=== PATIENT | female | born 2000 | race Two or more races ===

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

== ENCOUNTER 2020-01-23 19:21 | Emergency (ER) | payer OTHER, MEDICAID ==
[2020-01-23] MEDS ORDERED: Ibuprofen 800 MG Tab PO ONE (19:45)
[2020-01-23] MEDS ORDERED: Acetaminophen 500 MG Tab PO ONE (19:45)
--- NOTE | 2020-01-23 20:13 | EDM.PDOC ---
ED HPI GENERAL MEDICAL PROBLEM - General Chief Complaint: Lower Extremity Injury/Pain Stated Complaint: HURT ANKLE Time Seen by Provider: 01/23/20 19:30 Source of Information: Reports: Patient History Limitations: Reports: No Limitations - History of Present Illness INITIAL COMMENTS - FREE TEXT/NARRATIVE: Patient presented to the ED because of left ankle pain. She twsted her left ankle while at work. She rate her pain 9/10 and worse with ambulation. Left ankle Pain Score (Numeric/FACES): 6 - Related Data Allergies Allergy/AdvReac Type Severity Reaction Status Date / Time No Known Allergies Allergy Verified 01/23/20 19:42 Home Meds: Home Meds NK [No Known Home Meds] 06/04/19 [History] Past Medical History - Past Health History Medical/Surgical History: Denies Medical/Surgical History Gastrointestinal History: Reports: GERD Other Gastrointestinal History: Elevated bilirubin at . Neurological History: Reports: Concussion, Migraines - Past Surgical History GI Surgical History: Reports: None Social & Family History - Family History Family Medical History: Noncontributory - Tobacco Use Smoking Status *Q: Current Every Day Smoker Years of Tobacco use: 1 Packs/Tins Daily: 0.3 - Caffeine Use Caffeine Use: Reports: Coffee - Recreational Drug Use Recreational Drug Use: No - Living Situation & Occupation Occupation: Unemployed Review of Systems - Review of Systems Review Of Systems: See Below Constitutional: Reports: No Symptoms Ears: Reports: No Symptoms Nose: Reports: No Symptoms Mouth/Throat: Reports: No Symptoms Respiratory: Reports: No Symptoms Cardiovascular: Reports: No Symptoms Genitourinary: Reports: No Symptoms Musculoskeletal: Reports: Foot Pain, Joint Pain, Joint Swelling Skin: Reports: No Symptoms Neurological: Reports: No Symptoms ED EXAM, GENERAL - Physical Exam Exam: See Below Exam Limited By: No Limitations General Appearance: Alert, No Apparent Distress Eye Exam: Bilateral Eye: PERRL Ears: Normal External Exam, Normal Canal, Hearing Grossly Normal Nose: Normal Inspection, Normal Mucosa, No Blood Throat/Mouth: Normal Inspection, Normal Lips, Normal Teeth, Normal Gums, Normal Oropharynx, Normal Voice Head: Atraumatic, Normocephalic Neck: Normal Inspection, Supple, Non-Tender, Full Range of Motion Respiratory/Chest: No Respiratory Distress, Lungs Clear, Normal Breath Sounds, No Accessory Muscle Use, Chest Non-Tender Cardiovascular: Normal Peripheral Pulses, Regular Rate, Rhythm, No Edema, No Gallop, No JVD, No Murmur, No Rub GI/Abdominal: Normal Bowel Sounds, Soft, Non-Tender, No Organomegaly Extremities: Joint Swelling, Other (tenderness left ankle) Psychiatric: Normal Affect Skin Exam: Warm Course - Vital Signs Text/Narrative:: xray left ankle-neg ibuprofen 800 mg with tylenol 1000 mg po x1 air cast applied by ED RN Refused crutches Last Recorded V/S: Last Vital Signs Temp 36.4 C 01/23/20 20:52 Pulse 86 01/23/20 20:52 Resp 18 01/23/20 20:52 BP 135/67 01/23/20 20:52 Pulse Ox 99 01/23/20 20:52 - Orders/Labs/Meds Orders: Active Orders 24 hr Category Date Time Status Ankle Min 3V Lt [CR] Stat Exams 01/23/20 19:44 Taken Meds: Medications Discontinued Medications Generic Name Dose Route Start Last Admin Trade Name Freq PRN Reason Stop Dose Admin Acetaminophen 1,000 mg 01/23/20 19:45 01/23/20 19:54 Tylenol Extra Strength PO 01/23/20 19:46 1,000 mg ONETIME ONE Administration Ibuprofen 800 mg 01/23/20 19:45 01/23/20 19:54 Motrin PO 01/23/20 19:46 800 mg ONETIME ONE Administration Departure - Departure Time of Disposition: 20:10 Disposition: Home, Self-Care 01 Condition: Good Clinical Impression: Ankle sprain - Discharge Information Instructions: Ankle Sprain, [id number] Referrals: PCP,None [Primary Care Provider] - Forms: ED Department Discharge Additional Instructions: please read discharge instructions on ankle sprain take ibuprofen 800 mg with tylenol 1000 mg 3 times daily as needed for pain follow up as needed Sepsis Event Note - Evaluation Sepsis Screening Result: No Definite Risk - Focused Exam Vital Signs: Vital Signs Temp Pulse Resp BP Pulse Ox 01/23/20 20:52 36.4 C 86 18 135/67 99 01/23/20 19:25 36.4 C 84 16 140/82 100 Date Exam was Performed: 01/24/20 Time Exam was Performed: 02:00 - My Orders Last 24 Hours: My Active Orders 01/23/20 19:44 Ankle Min 3V Lt [CR] Stat - Assessment/Plan Last 24 Hours: My Active Orders 01/23/20 19:44 Ankle Min 3V Lt [CR] Stat
--- NOTE | 2020-01-24 11:00 | CR ---
INDICATION: Left ankle injury after tripping. Pain laterally. LEFT ANKLE: Three views of the left ankle revealed minimal soft tissue swelling laterally. The ankle mortise appears to be intact without a definite fracture or dislocation, or other definite bone or joint abnormality. If symptoms persist - if occult fracture site is suspected clinically, reexamination 10 to 14 days may be helpful. MTDD
== END 2020-01-23 21:00 | disposition home or self-care (01) ==
LOC: FB.ED 19:21
DX: S93.402A Sprain of unspecified ligament of left ankle, initial encounter (principal); F17.210 Nicotine dependence, cigarettes, uncomplicated; X50.1XXA Overexertion from prolonged static or awkward postures, initial encounter; Y99.0 Civilian activity done for income or pay
CPT/HCPCS: 73610-LT; 99000; 99283-25; A9270-GY

== ENCOUNTER 2020-08-22 01:55 | Emergency (ER) | payer SELFPAY ==
[2020-08-22] MEDS ORDERED: Lidocaine 2% Viscous Solution 15 ML Cup PO ONE (02:15)
[2020-08-22] MEDS ORDERED: Amoxicillin 500 MG Cap PO STA (02:33)
--- NOTE | 2020-08-22 02:38 | EDM.PDOC ---
ED HPI GENERAL MEDICAL PROBLEM - General Chief Complaint: General Stated Complaint: TOOTH INFECTION Time Seen by Provider: 08/22/20 02:10 Source of Information: Reports: Patient History Limitations: Reports: No Limitations - History of Present Illness INITIAL COMMENTS - FREE TEXT/NARRATIVE: Patient presented to the ED because of dental pain for the past 6 months which is getting worse. There was a chipped tooth next to the wisdom tooth at the right lower area. She is taking ibuprofen 400 mg without significant relief. 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 Neurological History: Reports: Concussion, Migraines - Past Surgical History GI Surgical History: Reports: None Social & Family History - Family History Family Medical History: Noncontributory - Caffeine Use Caffeine Use: Reports: Coffee - Living Situation & Occupation Occupation: Unemployed ED ROS GENERAL - Review of Systems Review Of Systems: See Below Constitutional: Reports: No Symptoms HEENT: Reports: Dental Pain Respiratory: Reports: No Symptoms Cardiovascular: Reports: No Symptoms Endocrine: Reports: No Symptoms GI/Abdominal: Reports: No Symptoms : Reports: No Symptoms Musculoskeletal: Reports: No Symptoms Skin: Reports: No Symptoms Neurological: Reports: No Symptoms Psychiatric: Reports: No Symptoms Hematologic/Lymphatic: Reports: No Symptoms Immunologic: Reports: No Symptoms ED EXAM, GENERAL - Physical Exam Exam: See Below Exam Limited By: No Limitations General Appearance: Alert, No Apparent Distress Ears: Normal External Exam, Normal Canal, Hearing Grossly Normal Nose: Normal Inspection, Normal Mucosa, No Blood Throat/Mouth: Other (dental caries, gingival swelling) Neck: Normal Inspection Respiratory/Chest: No Respiratory Distress, Lungs Clear, Normal Breath Sounds Cardiovascular: Normal Peripheral Pulses, Regular Rate, Rhythm, No Edema GI/Abdominal: Normal Bowel Sounds, Soft, Non-Tender, No Organomegaly Back Exam: Normal Inspection, Full Range of Motion Extremities: Normal Inspection, Normal Range of Motion, Non-Tender Neurological: Alert, Oriented, CN II-XII Intact, Normal Cognition, Normal Gait Psychiatric: Normal Affect, Normal Mood Skin Exam: Warm, Dry, Intact, Normal Color, No Rash Course - Vital Signs Text/Narrative:: amoxicillin 500 mg po x1 viscous lidocaine applied to the right lower gum area Last Recorded V/S: Last Vital Signs Temp 36.9 C 08/22/20 02:08 Pulse 86 08/22/20 02:08 Resp 18 08/22/20 02:08 BP 153/69 H 08/22/20 02:08 Pulse Ox 100 08/22/20 02:08 - Orders/Labs/Meds Meds: Medications Discontinued Medications Generic Name Dose Route Start Last Admin Trade Name Freq PRN Reason Stop Dose Admin Amoxicillin 500 mg 08/22/20 02:33 Amoxil PO 08/22/20 02:34 NOW STA Lidocaine HCl 15 ml 08/22/20 02:15 Xylocaine 2% Viscous PO 08/22/20 02:16 ONETIME ONE Departure - Departure Time of Disposition: 02:35 Disposition: Home, Self-Care 01 Condition: Good Clinical Impression: Chronic dental pain, Dental infection - Discharge Information Prescriptions: Amoxicillin 875 mg PO BID #20 tablet Ibuprofen 800 mg PO Q8H PRN #30 tablet PRN Reason: Pain Instructions: Benzocaine mouth gel, ointment, solution, or dental paste Referrals: PCP,None [Primary Care Provider] - Forms: ED Department Discharge Additional Instructions: Please read discharge instructions on dental pain and dental infection Take amoxicillin 875 mg twice daily for 10 days Ibuprofen 800 mg with tylenol 1000 mg every 8 hours as needed for pain Apply the viscous lidocain for pain that you can't tolerate Follow up with your dentist as soon as possible Sepsis Event Note (ED) - Evaluation Sepsis Screening Result: No Definite Risk - Focused Exam Vital Signs: Vital Signs Temp Pulse Resp BP Pulse Ox 08/22/20 02:08 36.9 C 86 18 153/69 H 100
== END 2020-08-22 02:50 | disposition home or self-care (01) ==
LOC: FB.ED 01:55
DX: K04.7 Periapical abscess without sinus (principal); K02.9 Dental caries, unspecified
CPT/HCPCS: 99282; A9270; 99283

== ENCOUNTER 2020-09-02 18:45 | Emergency (ER) | payer SELFPAY | END 2020-09-02 19:20 | disposition left against medical advice (07) | LOC: FB.ED 18:45 | DX: Z53.21 Procedure and treatment not carried out due to patient leaving prior to being seen by health care provider (principal) ==

== ENCOUNTER 2020-09-12 21:58 | Emergency (ER) | payer SELFPAY ==
--- NOTE | 2020-09-13 00:28 | EDM.PDOC ---
ED HPI GENERAL MEDICAL PROBLEM - General Chief Complaint: ENT Problem Stated Complaint: COUGH; SORE THROAT Time Seen by Provider: 09/12/20 23:30 Source of Information: Reports: Patient History Limitations: Reports: No Limitations - History of Present Illness INITIAL COMMENTS - FREE TEXT/NARRATIVE: states she has has fever , cough , sore throat and body aches for 3-4 days Cough is minimally productive of clear phlegm has sore throat , low grade fever has been using OTC Afrin , others for treatment and it improved needs release for her work Onset: Today Onset Date: 09/10/20 Duration: Day(s): Location: Reports: Chest Quality: Reports: Ache, Burning Severity: Moderate Improves with: Reports: None Worsens with: Reports: None Associated Symptoms: Reports: No Other Symptoms, Cough, Headaches, Nausea/Vomiting. Denies: Fever/Chills, Shortness of Breath throat Pain Score (Numeric/FACES): 4 - Related Data Allergies Allergy/AdvReac Type Severity Reaction Status Date / Time No Known Allergies Allergy Verified 01/23/20 19:42 Home Meds: Home Meds NK [No Known Home Meds] 09/12/20 [History] Past Medical History - Past Health History Medical/Surgical History: Denies Medical/Surgical History Gastrointestinal History: Reports: GERD Other Gastrointestinal History: Elevated bilirubin at . Neurological History: Reports: Concussion, Migraines - Past Surgical History GI Surgical History: Reports: None Social & Family History - Family History Family Medical History: Noncontributory - Tobacco Use Tobacco Use Status *Q: Never Tobacco User - Caffeine Use Caffeine Use: Reports: Coffee - Recreational Drug Use Recreational Drug Use: No - Living Situation & Occupation Occupation: Unemployed ED ROS ENT - Review of Systems Review Of Systems: Comprehensive ROS is negative, except as noted in HPI. ED EXAM, ENT - Physical Exam Exam: See Below Exam Limited By: No Limitations General Appearance: Alert, WD/WN, No Apparent Distress Eye Exam: Bilateral Eye: EOMI Ears: Normal External Exam, Normal TMs Nose: Clear Rhinorrhea, Nasal Discharge Mouth/Throat: Normal Oropharynx Head: Atraumatic, Normocephalic Neck: Normal Inspection, Supple, Non-Tender Respiratory/Chest: Lungs Clear, Normal Breath Sounds, Chest Non-Tender Cardiovascular: Regular Rate, Rhythm GI/Abdominal: Soft, Non-Tender Back: Full Range of Motion Neurological: Alert, Oriented, CN II-XII Intact Psychiatric: Normal Affect Course - Vital Signs Last Recorded V/S: Last Vital Signs Temp 36.6 C 09/12/20 23:10 Pulse 100 09/12/20 23:10 Resp 18 09/12/20 23:10 BP 141/87 H 09/12/20 23:10 Pulse Ox 100 09/12/20 23:10 - Orders/Labs/Meds Orders: Active Orders 24 hr Category Date Time Status CORNONAVIRUS (COVID19) [facility] Stat Lab 09/12/20 23:18 Received Departure - Departure Time of Disposition: 12:30 Disposition: Home, Self-Care 01 Condition: Good Clinical Impression: Acute viral syndrome Pharyngitis Qualifiers: Pharyngitis/tonsillitis etiology: unspecified etiology Qualified Code(s): J02.9 - Acute pharyngitis, unspecified - Discharge Information *PRESCRIPTION DRUG MONITORING PROGRAM REVIEWED*: Not Applicable *COPY OF PRESCRIPTION DRUG MONITORING REPORT IN PATIENT CONCETTA: Not Applicable Instructions: COVID-19 Frequently Asked Questions, Coronavirus Information 02/06/20, Prevent the Spread of COVID-19 if You Are Sick - [facility] [place][NOTE 3] Referrals: PCP,None [Primary Care Provider] - Forms: ED Department Discharge, ED Return to Work/School Form Additional Instructions: OTC medications: mucinex, Exedrin Sepsis Event Note (ED) - Evaluation Sepsis Screening Result: No Definite Risk - Focused Exam Vital Signs: Vital Signs Temp Pulse Resp BP Pulse Ox 09/12/20 23:10 36.6 C 100 18 141/87 H 100 - My Orders Last 24 Hours: My Active Orders 09/12/20 23:18 CORNONAVIRUS (COVID19) [facility] Stat - Assessment/Plan Last 24 Hours: My Active Orders 09/12/20 23:18 CORNONAVIRUS (COVID19) [facility] Stat
[2020-09-14 18:10] LABS: CORNONAVIRUS (COVID19) CSH-NRL Negative (Negative)
== END 2020-09-13 00:37 | disposition home or self-care (01) ==
LOC: FB.ED 21:58
DX: J02.9 Acute pharyngitis, unspecified (principal); B34.9 Viral infection, unspecified; Z20.828 Contact with and (suspected) exposure to other viral communicable diseases
CPT/HCPCS: 99283; U0003

== ENCOUNTER 2020-09-15 03:54 | Emergency (ER) | payer SELFPAY ==
[2020-09-15] MEDS ORDERED: Ketorolac 60 MG/2 ML SDV IM ONE (04:18)
--- NOTE | 2020-09-15 04:18 | EDM.PDOC ---
ED HPI GENERAL MEDICAL PROBLEM - General Chief Complaint: ENT Problem Stated Complaint: TOOTH PAIN Time Seen by Provider: 09/15/20 03:55 Source of Information: Reports: Patient History Limitations: Reports: Intoxication - History of Present Illness INITIAL COMMENTS - FREE TEXT/NARRATIVE: States she woke suddenly from sleep withsevere l right lower jjaw pain States she ran out wihtout shoes. has pain in the right lower jaw states she has caviites and some they caused to have tooth infection denies any fever or chill currently Onset: Today Onset Date: 09/15/20 Duration: Hour(s): (2) Location: Reports: Face Quality: Reports: Ache, Dull Severity: Moderate Improves with: Reports: Heat Therapy Worsens with: Reports: Eating Associated Symptoms: Reports: No Other Symptoms - Related Data Allergies Allergy/AdvReac Type Severity Reaction Status Date / Time No Known Allergies Allergy Verified 01/23/20 19:42 Home Meds: Home Meds Amoxicillin/Potassium Clav [Augmentin 875-125 Tablet] 1 each PO BID #20 tablet 09/15/20 [Rx] Past Medical History - Past Health History Medical/Surgical History: Denies Medical/Surgical History Gastrointestinal History: Reports: GERD Other Gastrointestinal History: Elevated bilirubin at . Neurological History: Reports: Concussion, Migraines - Past Surgical History GI Surgical History: Reports: None Social & Family History - Family History Family Medical History: Noncontributory - Caffeine Use Caffeine Use: Reports: Coffee - Living Situation & Occupation Occupation: Unemployed ED ROS ENT - Review of Systems Review Of Systems: Comprehensive ROS is negative, except as noted in HPI. ED EXAM, ENT - Physical Exam Exam: See Below Exam Limited By: No Limitations General Appearance: Alert, WD/WN, No Apparent Distress Ears: Normal External Exam Nose: Normal Inspection Mouth/Throat: Normal Gums, Dental Pain, Dental Tenderness, Hoarse Voice. No: Bleeding Head: Normocephalic Neck: Supple, Non-Tender Respiratory/Chest: Lungs Clear, Normal Breath Sounds Cardiovascular: Regular Rate, Rhythm GI/Abdominal: Soft, Non-Tender Back: Normal Inspection, Full Range of Motion Extremities: Normal Inspection, Normal Capillary Refill Neurological: Alert, Oriented, CN II-XII Intact Psychiatric: Normal Mood Course - Orders/Labs/Meds Meds: Medications Discontinued Medications Generic Name Dose Route Start Last Admin Trade Name Freq PRN Reason Stop Dose Admin Ketorolac Tromethamine 60 mg 09/15/20 04:18 09/15/20 04:24 Toradol IM 09/15/20 04:19 60 mg ONETIME ONE Administration Departure - Departure Time of Disposition: 04:30 Disposition: Home, Self-Care 01 Clinical Impression: Pain due to dental caries, Gingivitis, Toothache - Discharge Information *PRESCRIPTION DRUG MONITORING PROGRAM REVIEWED*: Not Applicable *COPY OF PRESCRIPTION DRUG MONITORING REPORT IN PATIENT CONCETTA: Not Applicable Prescriptions: Amoxicillin/Potassium Clav [Augmentin 357-125 Tablet] 1 each PO BID #20 tablet Forms: ED Department Discharge Additional Instructions: 1) Warm salt water gurgles 2) Take ibuprofen as needed for pain 3) Make an appointment to see the dentist
== END 2020-09-15 04:35 | disposition home or self-care (01) ==
LOC: FB.ED 03:54
DX: K05.10 Chronic gingivitis, plaque induced (principal); K02.9 Dental caries, unspecified
CPT/HCPCS: 96372; 99282; J1885

== ENCOUNTER 2021-03-18 20:57 | Emergency (ER) | payer SELFPAY ==
--- NOTE | 2021-03-18 21:13 | EDM.PDOC ---
ED HPI GENERAL MEDICAL PROBLEM - General Stated Complaint: COVID POSITIVE, SORE TOE Time Seen by Provider: 03/18/21 21:00 Source of Information: Reports: Patient History Limitations: Reports: No Limitations - History of Present Illness INITIAL COMMENTS - FREE TEXT/NARRATIVE: Patient presented to the ED because of left 4th and 5 toe injury. He stabbed it against a rock and since then it was hurting, and swollen. - Related Data Allergies Allergy/AdvReac Type Severity Reaction Status Date / Time No Known Allergies Allergy Verified 09/17/20 06:49 Home Meds: Home Meds Amoxicillin/Potassium Clav [Augmentin 875-125 Tablet] 1 each PO BID #20 tablet 09/15/20 [Rx] Past Medical History - Past Health History Medical/Surgical History: Denies Medical/Surgical History HEENT History: Reports: Other (See Below) Other HEENT History: Dental problems. Gastrointestinal History: Reports: GERD Other Gastrointestinal History: Elevated bilirubin at . Neurological History: Reports: Concussion, Migraines - Past Surgical History GI Surgical History: Reports: None Social & Family History - Family History Family Medical History: No Pertinent Family History - Caffeine Use Caffeine Use: Reports: Coffee - Living Situation & Occupation Occupation: Unemployed Review of Systems - Review of Systems Review Of Systems: See Below Constitutional: Reports: No Symptoms Eyes: Reports: No Symptoms Ears: Reports: No Symptoms Nose: Reports: No Symptoms Mouth/Throat: Reports: No Symptoms Respiratory: Reports: No Symptoms Cardiovascular: Reports: No Symptoms GI/Abdominal: Reports: No Symptoms Genitourinary: Reports: No Symptoms Musculoskeletal: Reports: Other (left foot pain) Skin: Reports: No Symptoms ED EXAM, GENERAL - Physical Exam Exam: See Below Exam Limited By: No Limitations General Appearance: Alert, No Apparent Distress Eye Exam: Bilateral Eye: PERRL Ears: Normal External Exam, Normal Canal Nose: Normal Inspection, Normal Mucosa, No Blood Throat/Mouth: Normal Inspection, Normal Lips Head: Atraumatic, Normocephalic Neck: Normal Inspection, Supple, Non-Tender, Full Range of Motion Respiratory/Chest: No Respiratory Distress, Lungs Clear, Normal Breath Sounds, No Accessory Muscle Use, Chest Non-Tender Cardiovascular: Normal Peripheral Pulses, Regular Rate, Rhythm, No Edema, No Gallop, No JVD, No Murmur, No Rub GI/Abdominal: Normal Bowel Sounds, Soft, Non-Tender Back Exam: Normal Inspection, Full Range of Motion Extremities: Joint Swelling, Other (tenderness and swelling left 4th and 4th toe) Course - Vital Signs Text/Narrative:: Xray left foot-left 4th toe fracture The fractured toe was zhao taped She refuse to have crutches an ortho shoes - Orders/Labs/Meds Orders: Active Orders 24 hr Category Date Time Status Foot Comp Min 3V Lt [CR] Stat Exams 03/18/21 21:03 Ordered Departure - Departure Time of Disposition: 21:10 Disposition: Home, Self-Care 01 Condition: Good Clinical Impression: Foot injury, Contusion, Toe fracture, left - Discharge Information Instructions: Toe Fracture, [id number], Contusion, Foot Pain Referrals: PCP,None [Primary Care Provider] - Additional Instructions: please read discharge instructions on foot injury,contusion, toe fracture apply ice elevate take ibuprofen 800 mg with tylenol 1000 mg every 8 hours as needed for pain/swelling follow up in 7-10 days for a repeat xray just to be sure it's healing well - My Orders Last 24 Hours: My Active Orders 03/18/21 21:03 Foot Comp Min 3V Lt [CR] Stat - Assessment/Plan Last 24 Hours: My Active Orders 03/18/21 21:03 Foot Comp Min 3V Lt [CR] Stat
--- NOTE | 2021-03-19 11:32 | CR ---
INDICATION: Left 4th/5th toe injury, dropped a brick on her foot. LEFT FOOT: Three views of the left foot were obtained 03/18/21 - no comparisons. There is an oblique fracture which appears somewhat comminuted at the shaft extending into the distal metaphysis of the proximal phalanx of the 4th toe with fracture fragments in good position and alignment. No other bone or joint abnormality was identified. IMPRESSION: 4th toe fracture in good position and alignment. MTDD
== END 2021-03-18 21:50 | disposition home or self-care (01) ==
LOC: FB.ED 20:57
DX: S92.512A Displaced fracture of proximal phalanx of left lesser toe(s), initial encounter for closed fracture (principal); W20.8XXA Other cause of strike by thrown, projected or falling object, initial encounter
CPT/HCPCS: 73630-LT; 99283

== ENCOUNTER 2021-04-11 09:51 | Emergency (ER) | payer SELFPAY ==
--- NOTE | 2021-04-11 10:40 | EDM.PDOC ---
ED HPI GENERAL MEDICAL PROBLEM - General Chief Complaint: ENT Problem Stated Complaint: sore throat Time Seen by Provider: 04/11/21 10:22 Source of Information: Reports: Patient History Limitations: Reports: No Limitations - History of Present Illness INITIAL COMMENTS - FREE TEXT/NARRATIVE: 20-year-old female who reports onset of sore throat last night. He reports it is a sore pain that is sharp and shooting when she swallows. She also has a mild cough. There is no nasal congestion. She finds it difficult to swallow and she has had no appetite and has not been eating. She rates the pain as a 7/10 at present. It is worse with swallowing. She feels that it is very swollen back there. She does have some body aches. No nausea or vomiting. No dysuria. No abdominal pain. There are no other associated signs or symptoms. There are no other modifying factors. 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 Neurological History: Reports: Concussion, Migraines - Past Surgical History Other Surgical History Comment: No previous surgeries. Social & Family History - Tobacco Use Tobacco Use Status *Q: Never Tobacco User - Caffeine Use Caffeine Use: Reports: Coffee - Alcohol Use Alcohol Use History: No - Recreational Drug Use Recreational Drug Use: No - Living Situation & Occupation Living situation: Reports: with Significant Other Occupation: Unemployed ED ROS ENT - Review of Systems Review Of Systems: See Below Constitutional: Reports: Malaise HEENT: Reports: Throat Pain Respiratory: Reports: Cough Cardiovascular: Reports: No Symptoms Endocrine: Reports: No Symptoms GI/Abdominal: Reports: No Symptoms : Reports: No Symptoms Musculoskeletal: Reports: Other (Body aches) Skin: Reports: No Symptoms Neurological: Reports: No Symptoms Psychiatric: Reports: No Symptoms Hematologic/Lymphatic: Reports: No Symptoms Immunologic: Reports: No Symptoms ED EXAM, ENT - Physical Exam Exam: See Below Exam Limited By: No Limitations General Appearance: Alert, Moderate Distress, Obese Eye Exam: Bilateral Eye: EOMI, Normal Inspection, PERRL Ears: Normal External Exam, Hearing Grossly Normal Nose: Normal Inspection, Normal Mucousa, No Blood Mouth/Throat: Normal Lips, Normal Teeth, Pharyngeal Erythema, Throat Swelling, Tonsillar Erythema, Tonsillar Exudates, Tonsillar Swelling, Other (No uvula deviation or edema.) Neck: Supple, Full Range of Motion, Lymphadenopathy (R), Lymphadenopathy (L) Respiratory/Chest: No Respiratory Distress, Lungs Clear, Normal Breath Sounds, No Accessory Muscle Use, Chest Non-Tender Cardiovascular: Normal Peripheral Pulses, Regular Rate, Rhythm, No Murmur GI/Abdominal: Normal Bowel Sounds, Soft, Non-Tender Back: Normal Inspection, Full Range of Motion Extremities: Normal Inspection, Normal Range of Motion, Non-Tender, No Pedal Edema, Normal Capillary Refill Neurological: Alert, Oriented, CN II-XII Intact, No Motor/Sensory Deficits Psychiatric: Normal Affect Skin: Warm, Dry, Intact, Normal Color, No Rash Lymphatic: Adenopathy (As above.) Course - Vital Signs Last Recorded V/S: Last Vital Signs Temp 37.2 C 04/11/21 09:55 Pulse 100 04/11/21 09:55 Resp 20 04/11/21 09:55 BP 117/105 H 04/11/21 09:55 Pulse Ox 100 04/11/21 09:55 - Orders/Labs/Meds Orders: Active Orders 24 hr Category Date Time Status Ibuprofen [Motrin 100 MG/5 ML Susp] Med 04/11/21 11:02 Once 600 mg PO ONETIME ONE dexAMETHasone [Decadron] Med 04/11/21 11:02 Once 10 mg PO ONETIME ONE Labs: Laboratory Tests 04/11/21 Range/Units 10:10 Group A Strep (PCR) Not detected (NOT DETECT) Meds: Medications Discontinued Medications Generic Name Dose Route Start Last Admin Trade Name Freq PRN Reason Stop Dose Admin Dexamethasone 10 mg 04/11/21 11:02 Dexamethasone 4 Mg/Ml Sdv PO 04/11/21 11:03 ONETIME ONE Ibuprofen 600 mg 04/11/21 11:02 Ibuprofen Susp 100 Mg/5 Ml 5 Ml Ud Cup PO 04/11/21 11:03 ONETIME ONE - Re-Assessments/Exams Free Text/Narrative Re-Assessment/Exam: 04/11/21 11:00: Patient's strep screen was negative. This appears to be a viral pharyngitis. I will give the patient Decadron 10 mg mixed with ibuprofen 600 mg PO. She appears uncomfortable but nontoxic. She needs to rest. She needs to increase her fluid intake. She can take ibuprofen and Tylenol as needed for pain. Precautions and reasons for return to the emergency department were discussed with the patient and her significant other while she was in the emergency department and were detailed in the patient's discharge instructions. Departure - Departure Time of Disposition: 11:10 Disposition: Home, Self-Care 01 Clinical Impression: Pharyngitis Qualifiers: Pharyngitis/tonsillitis etiology: unspecified etiology Qualified Code(s): J02.9 - Acute pharyngitis, unspecified - Discharge Information Instructions: Pharyngitis, [id number] Referrals: PCP,None [Ordering Only Provider] - Forms: ED Department Discharge Additional Instructions: Your strep screen was negative. Your throat infection appears to be due to a virus. You were given Decadron (a steroid medication and an anti-swelling medication) while you were in the emergency department. Hopefully, this will help decrease the swelling in your throat and help you with your pain. You need to increase your fluid intake. You can take Tylenol 1000 mg by mouth every 6 hours as needed for pain or fever. You can also take ibuprofen 600 mg by mouth every 6 hours as needed for fever or pain. Rest. Back to the emergency department for inability to swallow, unrelenting vomiting, severe weakness or any other concerning signs or symptoms. Sepsis Event Note (ED) - Evaluation Sepsis Screening Result: No Definite Risk - Focused Exam Vital Signs: Vital Signs Temp Pulse Resp BP Pulse Ox 04/11/21 09:55 37.2 C 100 20 117/105 H 100 - My Orders Last 24 Hours: My Active Orders 04/11/21 11:02 Ibuprofen [Motrin 100 MG/5 ML Susp] 600 mg PO ONETIME ONE dexAMETHasone [Decadron] 10 mg PO ONETIME ONE - Assessment/Plan Last 24 Hours: My Active Orders 04/11/21 11:02 Ibuprofen [Motrin 100 MG/5 ML Susp] 600 mg PO ONETIME ONE dexAMETHasone [Decadron] 10 mg PO ONETIME ONE
[2021-04-11] MEDS ORDERED: Ibuprofen Susp 100 MG/5 ML 5 ML UD Cup PO ONE (11:02)
[2021-04-11] MEDS ORDERED: Dexamethasone 4 MG/ML SDV PO ONE (11:02)
== END 2021-04-11 11:25 | disposition home or self-care (01) ==
LOC: FB.ED 09:51
DX: J02.9 Acute pharyngitis, unspecified (principal)
CPT/HCPCS: 87651-QW; 99283; A9270-GY; J1100

== ENCOUNTER 2021-05-21 20:56 | Emergency (ER) | payer BC ==
[2021-05-21] MEDS ORDERED: Sodium Chloride 0.9% 1,000 ML IV ONE (21:18)
[2021-05-21] MEDS ORDERED: Ondansetron 4 MG/2 ML SDV IVPUSH ONE (21:18)
[2021-05-21] MEDS ORDERED: Sodium Chloride 0.9% 10 ML Syringe FLUSH PRN (21:18)
[2021-05-21] MEDS ORDERED: Pantoprazole 40 MG Vial IVPUSH ONE (21:18)
--- NOTE | 2021-05-21 21:24 | EDM.PDOC ---
ED HPI GENERAL MEDICAL PROBLEM - General Chief Complaint: Abdominal Pain Stated Complaint: PUKING SINCE YEST Time Seen by Provider: 05/21/21 21:20 Source of Information: Reports: Patient History Limitations: Reports: No Limitations - History of Present Illness INITIAL COMMENTS - FREE TEXT/NARRATIVE: Presents with epigastric pain and N/V x 2 days. Also endorses sore throat, head ache, and cough. Denies diarrhea or fever. Patient tested positive for COVID @03/08/21. Denies prior h/o abdominal surgeries. She does not drink alcohol or take NSAIDS. Onset Date: 05/20/21 Severity: Moderate abd' Pain Score (Numeric/FACES): 7 - Related Data Allergies Allergy/AdvReac Type Severity Reaction Status Date / Time No Known Allergies Allergy Verified 05/21/21 21:55 Home Meds: Home Meds Pantoprazole Sodium [Protonix] 40 mg PO DAILY #14 tablet. 05/21/21 [Rx] Past Medical History HEENT History: Reports: Other (See Below) Other HEENT History: Dental problems. Gastrointestinal History: Reports: GERD Other Gastrointestinal History: Elevated bilirubin at . Musculoskeletal History: Reports: Other (See Below) Other Musculoskeletal History: Left foot injury. Neurological History: Reports: Concussion, Migraines Dermatologic History: Reports: Other (See Below) Other Dermatologic History: Dog bite to left cheek when a young child. - Past Surgical History Other Surgical History Comment: No previous surgeries. Social & Family History - Family History Family Medical History: No Pertinent Family History - Caffeine Use Caffeine Use: Reports: Coffee - Alcohol Use Alcohol Use History: No - Living Situation & Occupation Living situation: Reports: with Significant Other Occupation: Unemployed ED ROS GENERAL - Review of Systems Review Of Systems: Comprehensive ROS is negative, except as noted in HPI. ED EXAM, GI/ABD - Physical Exam Exam: See Below Exam Limited By: No Limitations General Appearance: Alert, WD/WN, No Apparent Distress Eyes: Bilateral: EOMI (PERRLA 3 mm) Nose: Normal Inspection Throat/Mouth: Normal Inspection, Normal Voice, No Airway Compromise Head: Atraumatic, Normocephalic Neck: Supple Respiratory/Chest: No Respiratory Distress, Lungs Clear, Normal Breath Sounds Cardiovascular: Regular Rate, Rhythm, No Murmur GI/Abdominal Exam: Normal Bowel Sounds, Soft, No Distention, Tender (epigastric). No: Guarding Back Exam: Full Range of Motion Extremities: Normal Range of Motion Neurological: Alert, Oriented, Normal Cognition Psychiatric: Normal Affect, Normal Mood Skin Exam: Warm, Dry, Intact Course - Vital Signs Last Recorded V/S: Last Vital Signs Temp 36.1 C 05/21/21 21:00 Pulse 98 05/21/21 21:00 Resp 16 05/21/21 21:00 BP 134/78 05/21/21 21:00 Pulse Ox 97 05/21/21 21:00 - Orders/Labs/Meds Orders: Active Orders 24 hr Category Date Time Status Abdomen Pelvis w Cont [CT] Stat Exams 05/21/21 22:29 Taken Sodium Chloride 0.9% [Saline Flush] Med 05/21/21 21:18 Active 10 ml FLUSH ASDIRECTED PRN Saline Lock Insert [OM.PC] Routine Oth 05/21/21 21:18 Ordered Medication Orders Sodium Chloride (Sodium Chloride 0.9% 10 Ml Syringe) 10 ml FLUSH ASDIRECTED PRN PRN Reason: Keep Vein Open Last Admin: 05/21/21 21:30 Dose: 10 ml Documented by: TAMIKO Labs: Laboratory Tests 05/21/21 05/21/21 05/21/21 Range/Units 21:25 21:25 21:25 WBC 10.4 H (3.0-10.3) x10-3/uL RBC 4.28 (3.60-5.20) x10(6)uL Hgb 12.7 (11.4-15.5) g/dL Hct 38.7 (34.2-48.2) % MCV 90.3 (76.7-100.5) fL MCH 29.7 (23.9-33.9) pg MCHC 32.9 (31.9-34.8) g/dL RDW 12.8 (12.3-16.5) % Plt Count 247 (151-488) x10(3)uL MPV 10.0 (7.1-12.4) fL Neut % (Auto) 68.3 (30.8-76.2) % Lymph % (Auto) 23.4 (18.4-52.1) % [place] % (Auto) 6.3 (4.4-15.7) % Eos % (Auto) 1.7 (0.6-8.1) % Baso % (Auto) 0.3 (0.2-1.5) % Neut # (Auto) 7.1 H (1.5-6.3) x10-3/uL Lymph # (Auto) 2.4 (1.0-4.4) x10-3/uL [place] # (Auto) 0.7 (0.3-1.0) x10-3/uL Eos # (Auto) 0.2 (0.0-0.8) x10-3/uL Baso # (Auto) 0.0 (0.0-0.1) x10-3/uL Sodium 143 (135-145) mmol/L Potassium 4.2 (3.5-5.3) mmol/L Chloride 105 (100-110) mmol/L Carbon Dioxide 28 (21-32) mmol/L BUN 15 (7-18) mg/dL Creatinine 1.0 (0.55-1.02) mg/dL Est Cr Clr Drug Dosing TNP Estimated GFR (MDRD) > 60 (>60) BUN/Creatinine Ratio 15.0 (9-20) Glucose 91 (80-116) mg/dL Calcium 8.6 (8.6-10.2) mg/dL Total Bilirubin 0.6 (0.1-1.3) mg/dL AST 22 D (5-25) IU/L ALT 28 D (12-36) U/L Alkaline Phosphatase 91 (56-112) IU/L Total Protein 7.7 (6.0-8.0) g/dL Albumin 4.0 (3.5-5.2) g/dL Globulin 3.7 g/dL Albumin/Globulin Ratio 1.1 Lipase 85 (73-393) U/L Urine Color (YELLOW) Urine Appearance (CLEAR) Urine pH (5.0-6.5) Ur Specific [place] (1.010-1.025) Urine Protein (NEGATIVE) mg/dL Urine Glucose (UA) (NORMAL) mg/dL Urine Ketones (NEGATIVE) mg/dL Urine Occult Blood (NEGATIVE) Urine Nitrite (NEGATIVE) Urine Bilirubin (NEGATIVE) Urine Urobilinogen (NEGATIVE) mg/dL Ur Leukocyte Esterase (NEGATIVE) Urine RBC (0-5) Urine WBC (0-5) Ur Squamous Epith Cells (NS,R,O) Urine Bacteria (NS) Urine HCG, Qual (NEGATIVE) 05/21/21 05/21/21 Range/Units 22:10 22:10 WBC (3.0-10.3) x10-3/uL RBC (3.60-5.20) x10(6)uL Hgb (11.4-15.5) g/dL Hct (34.2-48.2) % MCV (76.7-100.5) fL MCH (23.9-33.9) pg MCHC (31.9-34.8) g/dL RDW (12.3-16.5) % Plt Count (151-488) x10(3)uL MPV (7.1-12.4) fL Neut % (Auto) (30.8-76.2) % Lymph % (Auto) (18.4-52.1) % [place] % (Auto) (4.4-15.7) % Eos % (Auto) (0.6-8.1) % Baso % (Auto) (0.2-1.5) % Neut # (Auto) (1.5-6.3) x10-3/uL Lymph # (Auto) (1.0-4.4) x10-3/uL [place] # (Auto) (0.3-1.0) x10-3/uL Eos # (Auto) (0.0-0.8) x10-3/uL Baso # (Auto) (0.0-0.1) x10-3/uL Sodium (135-145) mmol/L Potassium (3.5-5.3) mmol/L Chloride (100-110) mmol/L Carbon Dioxide (21-32) mmol/L BUN (7-18) mg/dL Creatinine (0.55-1.02) mg/dL Est Cr Clr Drug Dosing Estimated GFR (MDRD) (>60) BUN/Creatinine Ratio (9-20) Glucose (80-116) mg/dL Calcium (8.6-10.2) mg/dL Total Bilirubin (0.1-1.3) mg/dL AST (5-25) IU/L ALT (12-36) U/L Alkaline Phosphatase (56-112) IU/L Total Protein (6.0-8.0) g/dL Albumin (3.5-5.2) g/dL Globulin g/dL Albumin/Globulin Ratio Lipase (73-393) U/L Urine Color Yellow (YELLOW) Urine Appearance Clear (CLEAR) Urine pH 6.5 (5.0-6.5) Ur Specific [place] 1.020 (1.010-1.025) Urine Protein Negative (NEGATIVE) mg/dL Urine Glucose (UA) Normal (NORMAL) mg/dL Urine Ketones Negative (NEGATIVE) mg/dL Urine Occult Blood Negative (NEGATIVE) Urine Nitrite Negative (NEGATIVE) Urine Bilirubin Negative (NEGATIVE) Urine Urobilinogen Normal (NEGATIVE) mg/dL Ur Leukocyte Esterase Negative (NEGATIVE) Urine RBC 0-5 (0-5) Urine WBC 0-5 (0-5) Ur Squamous Epith Cells Occasional (NS,R,O) Urine Bacteria Few H (NS) Urine HCG, Qual Negative (NEGATIVE) Meds: Medications Generic Name Dose Route Start Last Admin Trade Name Freq PRN Reason Stop Dose Admin Sodium Chloride 10 ml 05/21/21 21:18 05/21/21 21:30 Sodium Chloride 0.9% 10 Ml Syringe FLUSH 10 ml ASDIRECTED PRN Administration Keep Vein Open Discontinued Medications Generic Name Dose Route Start Last Admin Trade Name Freq PRN Reason Stop Dose Admin Sodium Chloride 1,000 mls @ 999 mls/hr 05/21/21 21:18 05/21/21 21:45 Normal Saline IV 05/21/21 22:18 999 mls/hr .BOLUS ONE Administration Iopamidol 100 ml 05/21/21 22:37 05/21/21 22:52 Iopamidol 755 Mg/Ml 100 Ml Bottle IV 05/21/21 22:38 100 ml . DIRECTED ONE Administration Ondansetron HCl 4 mg 05/21/21 21:18 05/21/21 21:46 Ondansetron 4 Mg/2 Ml Sdv IVPUSH 05/21/21 21:19 4 mg ONETIME ONE Administration Pantoprazole Sodium 40 mg 05/21/21 21:18 05/21/21 21:37 Pantoprazole 40 Mg Vial IVPUSH 05/21/21 21:19 40 mg ONETIME ONE Administration - Radiology Interpretation Free Text/Narrative:: CT Abd/Pelvis w/ IV contrast: IMPRESSION: 7.0 x 4.0 x 5.2 centimeter right ovarian dermoid. Otherwise unremarkable CT of the abdomen and pelvis. OSIEL HUFFMAN MD [employer] [employer] Dictated by Jose Huffman MD @ 05/21/2021 11:25:42 PM - Re-Assessments/Exams Free Text/Narrative Re-Assessment/Exam: 05/21/21 23:36 Symptoms improved after Protonix and Zofran. Departure - Departure Time of Disposition: 23:36 Disposition: Home, Self-Care 01 Condition: Good Clinical Impression: Gastroenteritis, Dermoid cyst of right ovary - Discharge Information *PRESCRIPTION DRUG MONITORING PROGRAM REVIEWED*: No *COPY OF PRESCRIPTION DRUG MONITORING REPORT IN PATIENT CONCETTA: Not Applicable Prescriptions: Pantoprazole Sodium [Protonix] 40 mg PO DAILY #14 tablet.dr Instructions: Ovarian Cyst, [id number], Viral Gastroenteritis, Adult, [id number] Referrals: PCP,None [Primary Care Provider] - Forms: ED Department Discharge Additional Instructions: Take the Zofran as needed. Fill the prescription for Protonix at [facility] in [place] and take as directed. Drink plenty of clear fluids. Take Tylenol as needed to control pain. Follow up with an [employer] physician regarding the right dermoid ovarian cyst. Follow up with your primary physician in 2 days if symptoms don't improve. Sepsis Event Note (ED) - Evaluation Sepsis Screening Result: No Definite Risk - Focused Exam Vital Signs: Vital Signs Temp Pulse Resp BP Pulse Ox 05/21/21 21:00 36.1 C 98 16 134/78 97 - My Orders Last 24 Hours: My Active Orders 05/21/21 21:18 Sodium Chloride 0.9% [Saline Flush] 10 ml FLUSH ASDIRECTED PRN Saline Lock Insert [OM.PC] Routine 05/21/21 22:29 Abdomen Pelvis w Cont [CT] Stat - Assessment/Plan Last 24 Hours: My Active Orders 05/21/21 21:18 Sodium Chloride 0.9% [Saline Flush] 10 ml FLUSH ASDIRECTED PRN Saline Lock Insert [OM.PC] Routine 05/21/21 22:29 Abdomen Pelvis w Cont [CT] Stat
[2021-05-21] MEDS ORDERED: Iopamidol 755 Mg/ML 100 ML Bottle IV ONE (22:37)
[2021-05-21] MEDS ORDERED: Ondansetron 4 MG Tab.DIS PO ONE (23:39)
== END 2021-05-21 23:50 | disposition home or self-care (01) ==
LOC: FB.ED 20:56
DX: K52.9 Noninfective gastroenteritis and colitis, unspecified (principal); D27.0 Benign neoplasm of right ovary
CPT/HCPCS: 36415; 74177; 80053; 81001; 81025; 83690; 85025; 96374; 96375; 99284; A9270; C9113; J2405; J7030; Q9967

== ENCOUNTER 2021-05-28 22:42 | Emergency (ER) | payer SELFPAY ==
[2021-05-28] MEDS ORDERED: Ketorolac 30 MG/ML SDV IM ONE (22:54)
--- NOTE | 2021-05-28 23:45 | EDM.PDOC ---
ED HPI GENERAL MEDICAL PROBLEM - General Chief Complaint: Abdominal Pain Stated Complaint: DIZZY Time Seen by Provider: 05/28/21 23:20 Source of Information: Reports: Patient History Limitations: Reports: No Limitations - History of Present Illness INITIAL COMMENTS - FREE TEXT/NARRATIVE: right lower abd pain ( from dermoid cyst) diagnosed in the last 3 days . Was given Protonix and Zofran . States she is not supposed to operate machinery after using Protonix and she gets dizzy Did not go to work today because she had the abd pain . Onset: Today Onset Date: 05/28/21 Duration: Getting Worse Location: Reports: Abdomen Quality: Reports: Ache Severity: Moderate Improves with: Reports: Heat Therapy Worsens with: Reports: None Associated Symptoms: Reports: Other (dizziness) Right Abdominal Pain Score (Numeric/FACES): 6 - Related Data Allergies Allergy/AdvReac Type Severity Reaction Status Date / Time No Known Allergies Allergy Verified 05/28/21 23:08 Home Meds: Home Meds Pantoprazole Sodium [Protonix] 40 mg PO DAILY #14 tablet. 05/21/21 [Rx] Naproxen 500 mg PO BID PRN #30 tablet 05/28/21 [Rx] Past Medical History HEENT History: Reports: Other (See Below) Other HEENT History: Dental problems. Gastrointestinal History: Reports: GERD Other Gastrointestinal History: Elevated bilirubin at . 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 Neurological History: Reports: Concussion, Migraines Dermatologic History: Reports: Other (See Below) Other Dermatologic History: Dog bite to left cheek when a young child. - Infectious Disease History Infectious Disease History: Reports: Chicken Pox - Past Surgical History GI Surgical History: Reports: None Social & Family History - Family History Family Medical History: No Pertinent Family History - Tobacco Use Tobacco Use Status *Q: Never Tobacco User - Caffeine Use Caffeine Use: Reports: Coffee - Recreational Drug Use Recreational Drug Use: No - Living Situation & Occupation Living situation: Reports: with Significant Other Occupation: Unemployed ED ROS GENERAL - Review of Systems Review Of Systems: Comprehensive ROS is negative, except as noted in HPI. ED EXAM, GI/ABD - Physical Exam Exam: See Below Exam Limited By: No Limitations General Appearance: Alert, WD/WN, No Apparent Distress Eyes: Bilateral: EOMI Ears: Normal External Exam Nose: Normal Inspection Throat/Mouth: Normal Oropharynx Head: Atraumatic, Normocephalic Neck: Supple, Non-Tender Respiratory/Chest: Lungs Clear Cardiovascular: Regular Rate, Rhythm GI/Abdominal Exam: Soft, Tender (RLQ) Back Exam: Normal Inspection Extremities: Normal Inspection Neurological: Alert, Oriented, CN II-XII Intact Psychiatric: Normal Mood, Flat Affect Skin Exam: Warm, Dry, Intact Course - Vital Signs Last Recorded V/S: Last Vital Signs Temp 37.1 C 05/28/21 22:50 Pulse 66 05/28/21 22:50 Resp 16 05/28/21 22:50 BP 147/81 H 05/28/21 22:50 Pulse Ox 99 05/28/21 22:50 - Orders/Labs/Meds Meds: Medications Discontinued Medications Generic Name Dose Route Start Last Admin Trade Name Carl PRN Reason Stop Dose Admin Ketorolac Tromethamine 60 mg 05/28/21 22:54 05/28/21 22:59 Ketorolac 30 Mg/Ml Sdv IM 05/28/21 22:55 60 mg ONETIME ONE Administration - Re-Assessments/Exams Free Text/Narrative Re-Assessment/Exam: 05/28/21 23:44 pt given IM Toradol Departure - Departure Time of Disposition: 11:55 Disposition: Home, Self-Care 01 Condition: Fair Clinical Impression: Right ovarian cyst, Abdominal pain - Discharge Information *PRESCRIPTION DRUG MONITORING PROGRAM REVIEWED*: Not Applicable *COPY OF PRESCRIPTION DRUG MONITORING REPORT IN PATIENT CONCETTA: Not Applicable Instructions: Ovarian Cyst, [id number] Referrals: PCP,None [Primary Care Provider] - Forms: ED Department Discharge, ED Return to Work/School Form Additional Instructions: 1) Take tylenol as needed for pain 2) make appointment to see your PCP , you may need referral to TELEVISION CABLE INSTALLER for assessment of Ovarian cyst for removal 3) Call with any concerns Sepsis Event Note (ED) - Evaluation Sepsis Screening Result: No Definite Risk - Focused Exam Vital Signs: Vital Signs Temp Pulse Resp BP Pulse Ox 05/28/21 22:50 37.1 C 66 16 147/81 H 99
== END 2021-05-29 00:22 | disposition home or self-care (01) ==
LOC: FB.ED 22:42
DX: N83.201 Unspecified ovarian cyst, right side (principal); K21.9 Gastro-esophageal reflux disease without esophagitis; Z79.899 Other long term (current) drug therapy
CPT/HCPCS: 96372; 99283; J1885

== ENCOUNTER 2021-05-29 09:06 | Emergency (ER) | payer SELFPAY ==
--- NOTE | 2021-05-29 09:54 | EDM.PDOC ---
ED HPI GENERAL MEDICAL PROBLEM - General Chief Complaint: General Stated Complaint: HIGH BLOOD PRESSURE Time Seen by Provider: 05/29/21 09:15 Source of Information: Reports: Patient History Limitations: Reports: No Limitations - History of Present Illness INITIAL COMMENTS - FREE TEXT/NARRATIVE: Patient presented to the ED because of an elevated BP during a preemployment physical. She denies having any headache,dizziness, chest pain,dyspnea or edema. Right Lower Abdomen Pain Score (Numeric/FACES): 7 - Related Data Allergies Allergy/AdvReac Type Severity Reaction Status Date / Time No Known Allergies Allergy Verified 05/28/21 23:08 Home Meds: Home Meds Pantoprazole Sodium [Protonix] 40 mg PO DAILY #14 tablet. 05/21/21 [Rx] Naproxen 500 mg PO BID PRN #30 tablet 05/28/21 [Rx] Ondansetron [Zofran ODT] 4 mg PO Q6H PRN 05/29/21 [History] Past Medical History HEENT History: Reports: Other (See Below) Other HEENT History: Dental problems. Gastrointestinal History: Reports: GERD Other Gastrointestinal History: Elevated bilirubin at . 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 Neurological History: Reports: Concussion, Migraines Dermatologic History: Reports: Other (See Below) Other Dermatologic History: Dog bite to left cheek when a young child. - Infectious Disease History Infectious Disease History: Reports: Chicken Pox - Past Surgical History GI Surgical History: Reports: None Social & Family History - Family History Family Medical History: No Pertinent Family History - Tobacco Use Tobacco Use Status *Q: Never Tobacco User - Caffeine Use Caffeine Use: Reports: None - Recreational Drug Use Recreational Drug Use: No - Living Situation & Occupation Living situation: Reports: with Significant Other Occupation: Unemployed ED ROS GENERAL - Review of Systems Review Of Systems: See Below Constitutional: Reports: No Symptoms HEENT: Reports: No Symptoms Respiratory: Reports: No Symptoms Cardiovascular: Reports: No Symptoms Endocrine: Reports: No Symptoms GI/Abdominal: Reports: No Symptoms : Reports: No Symptoms Musculoskeletal: Reports: No Symptoms Skin: Reports: No Symptoms Neurological: Reports: No Symptoms Psychiatric: Reports: No Symptoms Hematologic/Lymphatic: Reports: No Symptoms Immunologic: Reports: No Symptoms ED EXAM, GENERAL - Physical Exam Exam: See Below Exam Limited By: No Limitations General Appearance: Alert, No Apparent Distress Ears: Normal External Exam, Normal Canal, Hearing Grossly Normal Nose: Normal Inspection, Normal Mucosa, No Blood Throat/Mouth: Normal Inspection, Normal Lips, Normal Teeth, Normal Gums Head: Atraumatic, Normocephalic Neck: Normal Inspection, Supple, Non-Tender, Full Range of Motion Respiratory/Chest: No Respiratory Distress, Lungs Clear, Normal Breath Sounds Cardiovascular: Normal Peripheral Pulses, Regular Rate, Rhythm, No Edema, No Gallop GI/Abdominal: Normal Bowel Sounds, Soft, Non-Tender, No Organomegaly, No Distention, No Abnormal Bruit, No Mass Back Exam: Normal Inspection, Full Range of Motion Course - Vital Signs Text/Narrative:: labs done on 05/21/21-normal Last Recorded V/S: Last Vital Signs Temp 36.6 C 05/29/21 09:06 Pulse 73 05/29/21 09:06 Resp 18 05/29/21 09:06 BP 161/90 H 05/29/21 09:06 Pulse Ox 98 05/29/21 09:06 Departure - Departure Time of Disposition: 10:00 Disposition: Home, Self-Care 01 Condition: Good Clinical Impression: HTN (hypertension) - Discharge Information Instructions: Hypertension, Adult Referrals: PCP,None [Primary Care Provider] - Additional Instructions: please read discharge instructions on hypertension Low salt, low fat diet Exercise and weight loss Record your BP am/pm for 1 week and bring it during your fir clinic visit Call [facility] or [place] to schedule an appointment for a follow up visit after 1 week. We don't do follow up in the ED. [facility]-[phone] [place] -[phone] Sepsis Event Note (ED) - Evaluation Sepsis Screening Result: No Definite Risk - Focused Exam Vital Signs: Vital Signs Temp Pulse Resp BP Pulse Ox 05/29/21 09:06 36.6 C 73 18 161/90 H 98
== END 2021-05-29 10:25 | disposition home or self-care (01) ==
LOC: FB.ED 09:06
DX: I10 Essential (primary) hypertension (principal); K21.9 Gastro-esophageal reflux disease without esophagitis; Z79.899 Other long term (current) drug therapy
CPT/HCPCS: 99283

== ENCOUNTER 2021-07-15 03:58 | Emergency (ER) | payer SELFPAY ==
[2021-07-15] MEDS ORDERED: traMADol 50 MG Tab PO ONE (04:09)
[2021-07-15] MEDS ORDERED: Ibuprofen 800 MG Tab PO ONE (04:10)
--- NOTE | 2021-07-15 04:51 | EDM.PDOC ---
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 She started having her period sometime in mid May and for the past several days she c/o cramping over the suprapubic area. 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 05/21/21 [Rx] Naproxen 500 mg PO BID PRN #30 tablet 05/28/21 [Rx] Ondansetron [Zofran ODT] 4 mg PO Q6H PRN 05/29/21 [History] Ibuprofen 800 mg PO Q8H PRN #30 tablet 07/15/21 [Rx] traMADol [Ultram] 100 mg PO Q8H PRN #15 tab 07/15/21 [Rx] Past Medical History HEENT History: Reports: Other (See Below) Other HEENT History: Dental problems. Gastrointestinal History: Reports: GERD Other Gastrointestinal History: Elevated bilirubin at . 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 Neurological History: Reports: Concussion, Migraines Dermatologic History: Reports: Other (See Below) Other Dermatologic History: Dog bite to left cheek when a young child. - Infectious Disease History Infectious Disease History: Reports: Chicken Pox - Past Surgical History GI Surgical History: Reports: None Social & Family History - Family History Family Medical History: No Pertinent Family History - Tobacco Use Tobacco Use Status *Q: Never Tobacco User - Caffeine Use Caffeine Use: Reports: Coffee, Energy Drinks, Soda - Recreational Drug Use Recreational Drug Use: No - Living Situation & Occupation Living situation: Reports: with Significant Other Occupation: Unemployed ED ROS GENERAL - Review of Systems Review Of Systems: See Below Constitutional: Reports: No Symptoms HEENT: Reports: No Symptoms Respiratory: Reports: No Symptoms Cardiovascular: Reports: No Symptoms Endocrine: Reports: No Symptoms GI/Abdominal: Reports: No Symptoms : Reports: No Symptoms Musculoskeletal: Reports: No Symptoms Skin: Reports: No Symptoms Neurological: Reports: No Symptoms Psychiatric: Reports: No Symptoms ED EXAM, GENERAL - Physical Exam Exam: See Below Exam Limited By: No Limitations General Appearance: Alert, No Apparent Distress Eye Exam: Bilateral Eye: PERRL Ears: Normal External Exam, Normal Canal Nose: Normal Inspection, Normal Mucosa, No Blood Throat/Mouth: Normal Inspection, Normal Lips, Normal Teeth Head: Atraumatic, Normocephalic Neck: Normal Inspection, Supple, Non-Tender, Full Range of Motion Respiratory/Chest: No Respiratory Distress, Lungs Clear, Normal Breath Sounds, No Accessory Muscle Use, Chest Non-Tender Cardiovascular: Normal Peripheral Pulses, Regular Rate, Rhythm, No Edema, No Gallop, No JVD, No Murmur, No Rub GI/Abdominal: Normal Bowel Sounds, Soft, Other (suprapubic tenderness) Back Exam: Normal Inspection, Full Range of Motion Extremities: Normal Inspection, Normal Range of Motion, Non-Tender Course - Vital Signs Text/Narrative:: Tramadol 100 mg PO x1 Ibuprofen 800 mg PO x1 I advised patient to follow up with a clinic provider because she doesn't have one but she got upset. She said I can come here anytime I want, I told her she can't because we don't do follow up in the ED. Last Recorded V/S: Last Vital Signs Temp 36.4 C 07/15/21 04:05 Pulse 83 07/15/21 04:05 Resp 18 07/15/21 04:05 BP 142/75 H 07/15/21 04:05 Pulse Ox 98 07/15/21 04:05 - Orders/Labs/Meds Meds: Medications Discontinued Medications Generic Name Dose Route Start Last Admin Trade Name Freq PRN Reason Stop Dose Admin Ibuprofen 800 mg 07/15/21 04:10 07/15/21 04:18 Ibuprofen 800 Mg Tab PO 07/15/21 04:11 800 mg ONETIME ONE Administration Tramadol HCl 100 mg 07/15/21 04:09 07/15/21 04:18 Tramadol 50 Mg Tab PO 07/15/21 04:10 100 mg ONETIME ONE Administration Departure - Departure Time of Disposition: 04:50 Disposition: Home, Self-Care 01 Condition: Good Clinical Impression: Dysmenorrhea - Discharge Information Prescriptions: Ibuprofen 800 mg PO Q8H PRN #30 tablet PRN Reason: Pain traMADol [Ultram] 100 mg PO Q8H PRN #15 tab PRN Reason: Pain Instructions: Dysmenorrhea Referrals: Vladislav Shirley MD [Primary Care Provider] - Forms: ED Department Discharge Additional Instructions: Please read discharge instructions on dysmenorrhea Take all the following medication all at the same time:tramadol 100 mg, ibuprofen 800 mg, tylenol 93293 mg every 8 hours as needed for pain Follow up as needed Sepsis Event Note (ED) - Evaluation Sepsis Screening Result: No Definite Risk - Focused Exam Vital Signs: Vital Signs Temp Pulse Resp BP Pulse Ox 07/15/21 04:05 36.4 C 83 18 142/75 H 98
== END 2021-07-15 05:06 | disposition home or self-care (01) ==
LOC: FB.ED 03:58
DX: N94.6 Dysmenorrhea, unspecified (principal); K21.9 Gastro-esophageal reflux disease without esophagitis; Z79.899 Other long term (current) drug therapy
CPT/HCPCS: 99283; A9270

== ENCOUNTER 2021-07-29 00:24 | Emergency (ER) | payer SELFPAY ==
[2021-07-29] MEDS ORDERED: Sulfamethoxazole/Trimethoprim 800-160 MG Tab PO ONE (00:25)
--- NOTE | 2021-07-29 00:34 | EDM.PDOC ---
ED HPI GENERAL MEDICAL PROBLEM - General Stated Complaint: ABDOMINAL PAIN ON RIGHT SIDE Time Seen by Provider: 07/29/21 00:30 Source of Information: Reports: Patient History Limitations: Reports: No Limitations - History of Present Illness INITIAL COMMENTS - FREE TEXT/NARRATIVE: 20-year-old female with right lower quadrant and right pelvic pain that has been intermittent for the past 2-3 years. She reports that she has been told that she has an ovarian cyst and she recently had an ultrasound on 07/23/2021 which confirmed that she still has this cyst on her right ovary. She was apparently given some tramadol for her pain at that time she states that she is out of the tramadol male area the pain was worse tonight and it was a sharp and shooting pain that she rated as an 8/10. There is no nausea or vomiting. She has had no dysuria or hematuria. She does have irregular menses and reports that she was on her menstrual period for an entire month this recently. She reports that on 08/08/2021 she is to go to [place] to follow-up with a "specialist". She has been able to eat and drink normally. No diarrhea. There are no other associated signs or symptoms. There are no other modifying factors. Onset: Other (Ongoing and intermittent for the past 2-3 years.) Duration: Other (Seem to be somewhat worse tonight. 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 05/21/21 [Rx] Naproxen 500 mg PO BID PRN #30 tablet 05/28/21 [Rx] Ondansetron [Zofran ODT] 4 mg PO Q6H PRN 05/29/21 [History] Ibuprofen 800 mg PO Q8H PRN #30 tablet 07/15/21 [Rx] traMADol [Ultram] 100 mg PO Q8H PRN #15 tab 07/15/21 [Rx] Sulfamethoxazole/Trimethoprim [Bactrim Ds Tablet] 1 each PO BID #4 tablet 07/29/21 [Rx] Past Medical History HEENT History: Reports: Other (See Below) Other HEENT History: Dental problems. Gastrointestinal History: Reports: GERD Other Gastrointestinal History: Elevated bilirubin at . 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 Social & Family History - Tobacco Use Tobacco Use Status *Q: Unknown Ever Used Tobacco (Nonsmoker.) - Caffeine Use Caffeine Use: Reports: Coffee, Energy Drinks, Soda - Alcohol Use Alcohol Use History: No - Living Situation & Occupation Living situation: Reports: with Significant Other Occupation: Unemployed ED ROS GENERAL - Review of Systems Review Of Systems: See Below Constitutional: Denies: Fever, Chills HEENT: Denies: Throat Pain Respiratory: Denies: Shortness of Breath, Cough Cardiovascular: Denies: Chest Pain, Palpitations GI/Abdominal: Reports: Abdominal Pain (Right lower quadrant and pelvic area.). Denies: Nausea, Vomiting : Denies: Dysuria, Hematuria, Pain Musculoskeletal: Denies: Neck Pain, Arm Pain Skin: Denies: Diaphoresis, Rash Neurological: Denies: Headache, Weakness Hematologic/Lymphatic: Denies: Easy Bleeding, Easy Bruising ED EXAM, GI/ABD - Physical Exam Exam: See Below Exam Limited By: No Limitations General Appearance: Alert, Mild Distress (Appears to some pain. She is nontoxic), Obese Eyes: Bilateral: Normal Appearance, EOMI Ears: Normal External Exam, Hearing Grossly Normal Nose: Normal Inspection, Normal Mucosa, No Blood Throat/Mouth: Normal Inspection, Normal Oropharynx, Normal Voice, No Airway Compromise Head: Atraumatic, Normocephalic Neck: Normal Inspection, Supple, Non-Tender, Full Range of Motion Respiratory/Chest: No Respiratory Distress, Lungs Clear, Normal Breath Sounds, No Accessory Muscle Use, Chest Non-Tender Cardiovascular: Normal Peripheral Pulses, Regular Rate, Rhythm, No Murmur GI/Abdominal Exam: Normal Bowel Sounds, Soft, No Mass, Tender (In right lower quadrant and right pelvic area.). No: Guarding, Rebound Back Exam: Normal Inspection, Full Range of Motion Extremities: Normal Inspection, Normal Range of Motion, Non-Tender, No Pedal Edema, Normal Capillary Refill Neurological: Alert, Oriented, CN II-XII Intact, Normal Cognition, No Motor/Sensory Deficits Psychiatric: Normal Affect Skin Exam: Warm, Dry, Intact, Normal Color, No Rash Course - Vital Signs Last Recorded V/S: Last Vital Signs Temp 36.3 C 07/29/21 00:36 Pulse 84 07/29/21 00:36 Resp 18 07/29/21 00:36 BP 143/86 H 07/29/21 00:36 Pulse Ox 98 07/29/21 00:36 - Orders/Labs/Meds Labs: Laboratory Tests 07/29/21 07/29/21 Range/Units 00:44 00:44 Urine Color Yellow (YELLOW) Urine Appearance Slightly cloudy (CLEAR) Urine pH 5.0 (5.0-6.5) Ur Specific Hiram 1.025 (1.010-1.025) Urine Protein Negative (NEGATIVE) mg/dL Urine Glucose (UA) Normal (NORMAL) mg/dL Urine Ketones Negative (NEGATIVE) mg/dL Urine Occult Blood Trace (NEGATIVE) Urine Nitrite Positive H (NEGATIVE) Urine Bilirubin Negative (NEGATIVE) Urine Urobilinogen Normal (NEGATIVE) mg/dL Ur Leukocyte Esterase Small H (NEGATIVE) Urine RBC 0-5 (0-5) Urine WBC 5-10 H (0-5) Ur Squamous Epith Cells Few H (NS,R,O) Urine Bacteria Many H (NS) Urine Mucus Moderate H (NS) Urine HCG, Qual Negative (NEGATIVE) - Re-Assessments/Exams Free Text/Narrative Re-Assessment/Exam: 07/29/21 01:05: The urine production has was negative. Urinalysis did have positive nitrite and there were 5-10 white cells per high-power field. There were also bacteria present. I will send the urine for culture and I will place the patient on Bactrim DS twice a day for 7 days. The patient has told her that she is out of her tramadol and the ibuprofen has not really done anything for her pain. I have told her that we could not provide her with any her chronic type pain medications for this pain which appears to be chronic in nature. She does appear to have a UTI but I feel that ibuprofen and Tylenol should be sufficient for any pain she would have related to this. I have explained this to her. She should follow-up with her primary provider to this pain and for any chronic pain-related issues. I will give the patient a take home pack of Bactrim and will send a prescription for additional Bactrim to complete 7 days worth of treatment. Departure - Departure Time of Disposition: 01:12 Disposition: Home, Self-Care 01 Condition: Good Clinical Impression: UTI (urinary tract infection), Chronic pain in female pelvis - Discharge Information Prescriptions: Sulfamethoxazole/Trimethoprim [Bactrim Ds Tablet] 1 each PO BID #4 tablet Instructions: Pelvic Pain, Female, [id number], Urinary Tract Infection, Adult, [id number] Referrals: PCP,None [Primary Care Provider] - Additional Instructions: Your urine test did show evidence of a urinary tract infection. This could be causing some of your pain. You need to increase your fluid intake. You should continue to take ibuprofen and Tylenol as needed for pain. Medication as prescribed (Bactrim DS). You were given a take home pack that will provide you with 5 days' worth of treatment. I sent a prescription electronically to [facility] pharmacy in [place] for additional Bactrim so that you can complete 7 days worth of treatment area you should begin this medication after the take- home pack is completed. Follow-up with your primary provider week and you would need to go through them for any of your chronic pain-related issues. Back to the emergency department for unrelenting vomiting, high fever or any other concerning signs or symptoms. Sepsis Event Note (ED) - Focused Exam Vital Signs: Vital Signs Temp Pulse Resp BP Pulse Ox 07/29/21 00:36 36.3 C 84 18 143/86 H 98
== END 2021-07-29 01:25 | disposition home or self-care (01) ==
LOC: FB.ED 00:24
DX: N39.0 Urinary tract infection, site not specified (principal); K21.9 Gastro-esophageal reflux disease without esophagitis; Z79.899 Other long term (current) drug therapy
CPT/HCPCS: 81001; 81025; 87086; 87088; 87186; 99284; A9270

== ENCOUNTER 2021-09-14 12:33 | Emergency (ER) | payer BC ==
--- NOTE | 2021-09-14 12:44 | EDM.PDOC ---
ED HPI GENERAL MEDICAL PROBLEM - General Chief Complaint: Lower Extremity Injury/Pain Stated Complaint: POSSIBLE BROKE FOOT Time Seen by Provider: 09/14/21 12:35 Source of Information: Reports: Patient History Limitations: Reports: No Limitations - History of Present Illness INITIAL COMMENTS - FREE TEXT/NARRATIVE: Patient states that she was running upstairs and her big toe on her left foot got stuck on a step and as she tried to step up it caused pain between her first and second digit of her left foot. She was immediately able to bear weight on it but only on the outside of her foot not on the inside of her foot she tried resting and using ice overnight but the pain became too severe and she came to the emergency department. She denies all other review of systems including flulike symptoms that include fever, chills, cough, upper respiratory symptoms. She also denies chest pain, shortness of breath, change in bowel or bladder habits. - Related Data Allergies Allergy/AdvReac Type Severity Reaction Status Date / Time No Known Allergies Allergy Verified 05/28/21 23:08 Past Medical History HEENT History: Reports: Other (See Below) Other HEENT History: Dental problems. Gastrointestinal History: Reports: GERD Other Gastrointestinal History: Elevated bilirubin at . 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 Neurological History: Reports: Concussion, Migraines Dermatologic History: Reports: Other (See Below) Other Dermatologic History: Dog bite to left cheek when a young child. - Infectious Disease History Infectious Disease History: Reports: Chicken Pox - Past Surgical History Other Surgical History Comment: No previous surgeries. Social & Family History - Family History Family Medical History: No Pertinent Family History - Caffeine Use Caffeine Use: Reports: Coffee, Soda - Living Situation & Occupation Living situation: Reports: with Significant Other Occupation: Unemployed Review of Systems - Review of Systems Review Of Systems: See Below Constitutional: Reports: No Symptoms Eyes: Reports: No Symptoms Ears: Reports: No Symptoms Nose: Reports: No Symptoms Mouth/Throat: Reports: No Symptoms Respiratory: Reports: No Symptoms Cardiovascular: Reports: No Symptoms Genitourinary: Reports: No Symptoms Musculoskeletal: Reports: Foot Pain Skin: Reports: No Symptoms Neurological: Reports: No Symptoms Psychiatric: Reports: No Symptoms ED EXAM, GENERAL - Physical Exam Exam: See Below Free Text/Narrative:: Visual examination the left foot shows significant swelling and ecchymosis along the distal first metatarsal and proximal phalanx of the first digit of the left foot. Active range of motion is significantly limited by pain and swelling. However, the patient is able to actively flex her first digit. Passive range of motion is similarly limited. Sensation and capillary refill are intact Exam Limited By: No Limitations General Appearance: Alert, WD/WN, No Apparent Distress Eye Exam: Bilateral Eye: EOMI Head: Atraumatic, Normocephalic Neck: Normal Inspection Respiratory/Chest: No Respiratory Distress, Lungs Clear Cardiovascular: Regular Rate, Rhythm, No Murmur Peripheral Pulses: 2+: Dorsalis Pedis (L), Dorsalis Pedis (R) GI/Abdominal: Normal Bowel Sounds Back Exam: Normal Inspection Extremities: No Pedal Edema Neurological: Alert, Oriented, CN II-XII Intact, Normal Cognition Psychiatric: Normal Affect, Normal Mood Skin Exam: Warm, Dry, Intact Course - Vital Signs Text/Narrative:: Review of x-ray shows fractures of the proximal phalanx of the first digit of the left foot. Last Recorded V/S: Last Vital Signs Temp 36.6 C 09/14/21 12:37 Pulse 95 09/14/21 12:37 Resp 18 09/14/21 12:37 BP 152/96 H 09/14/21 12:37 Pulse Ox 98 09/14/21 12:37 - Orders/Labs/Meds Orders: Active Orders 24 hr Category Date Time Status Toes Great Toe Lt TA [CR] Stat Exams 09/14/21 12:38 Taken Departure - Departure Time of Disposition: 13:35 Disposition: Home, Self-Care 01 Condition: Good Clinical Impression: Toe fracture, left, Closed fracture of phalanx of foot - Discharge Information *PRESCRIPTION DRUG MONITORING PROGRAM REVIEWED*: Not Applicable *COPY OF PRESCRIPTION DRUG MONITORING REPORT IN PATIENT CONCETTA: Not Applicable Instructions: Toe Fracture, [id number] Forms: ED Department Discharge Additional Instructions: Patient advised to rest, ice, elevate, alternate Tylenol and ibuprofen for pain control. Patient advised to contact her primary care physician's office first thing Thursday morning and try to schedule appointment with primary care physician and/or with podiatry. She will need podiatry or orthopedic surgery for care of this fracture for proper alignment. Sepsis Event Note (ED) - Evaluation Sepsis Screening Result: No Definite Risk - Focused Exam Vital Signs: Vital Signs Temp Pulse Resp BP Pulse Ox 09/14/21 12:37 36.6 C 95 18 152/96 H 98 - My Orders Last 24 Hours: My Active Orders 09/14/21 12:38 Toes Great Toe Lt TA [CR] Stat - Assessment/Plan Last 24 Hours: My Active Orders 09/14/21 12:38 Toes Great Toe Lt TA [CR] Stat
--- NOTE | 2021-09-16 10:51 | CR ---
INDICATION: Pain, swelling, trauma. Fall, walking up stairs. LEFT TOES: Three views of the left toes were obtained 09/14/21 and compared with 03/18/21. There is now noted a comminuted oblique fracture through the mid to distal shaft and distal metaphysis of the proximal phalanx of the great toe with adequate position and alignment suggested, there being some mild lateral offset of the distal fracture fragment - 1.5 mm. No other significant bone or joint abnormality was seen. IMPRESSION: Fracture of the proximal phalanx of the great toe with adequate position and alignment. MTDD
== END 2021-09-14 13:46 | disposition home or self-care (01) ==
LOC: FB.ED 12:33
DX: S92.422A Displaced fracture of distal phalanx of left great toe, initial encounter for closed fracture (principal); W22.09XA Striking against other stationary object, initial encounter
CPT/HCPCS: 73660-TA; 99283-25

== ENCOUNTER 2022-08-08 23:18 | Emergency (ER) | payer BC, MEDICAID ==
[2022-08-09 00:24] LABS: ESTIMATED GFR 93 mL/min (>60)
== END 2022-08-09 00:20 ==
LOC: FB.ED 23:18
DX: O20.9 Hemorrhage in early pregnancy, unspecified (principal); O10.012 Pre-existing essential hypertension complicating pregnancy, second trimester; Z3A.19 19 weeks gestation of pregnancy
CPT/HCPCS: 36415; 80053; 85025; 99284

== ENCOUNTER 2022-12-20 18:10 | Emergency (ER) | payer MEDICAID | END 2022-12-20 18:29 | disposition left against medical advice (07) | LOC: FB.ED 18:10 | DX: Z53.21 Procedure and treatment not carried out due to patient leaving prior to being seen by health care provider (principal) ==

== ENCOUNTER 2025-01-21 14:34 | Emergency (ER) | payer BC, MEDICAID | END 2025-01-21 15:44 | disposition home or self-care (01) | LOC: FB.ED 14:34 | DX: S93.402A Sprain of unspecified ligament of left ankle, initial encounter (principal); W50.0XXA Accidental hit or strike by another person, initial encounter | CPT/HCPCS: 73610-LT; 99283 ==

== ENCOUNTER 2025-05-15 05:46 | Emergency (ER) | payer BC ==
[2025-05-15] MEDS ORDERED: Sodium Chloride 0.9% 10 ML Syringe FLUSH PRN (06:09)
[2025-05-15] MEDS: Sodium Chloride 0.9% 1,000 ML IV ONE (06:25)
[2025-05-15] MEDS: Promethazine 25 MG in Sodium Chloride 0.9% 50 ML IV ONE (06:35)
[2025-05-15 06:36] LABS: BASOPHILS PERCENT AUTO 0.3 % (0.2-1.5); EOSINOPHILS ABSOLUTE AUTO 0.2 x10-3/uL (0.0-0.8); EOSINOPHILS PERCENT AUTO 2.3 % (0.6-8.1); HEMATOCRIT 37.9 % (34.2-48.2); HEMOGLOBIN 12.8 g/dL (11.4-15.5); LYMPHOCYTES ABSOLUTE AUTO 2.2 x10-3/uL (1.0-4.4); LYMPHOCYTES PERCENT AUTO 21.3 % (18.4-52.1); MEAN CORPUSCULAR HEMOGLOBIN 29.2 pg (23.9-33.9); MEAN CORPUSCULAR HGB CONC 33.8 g/dL (31.9-34.8); MEAN CORPUSCULAR VOLUME 86.4 fL (76.7-100.5); MEAN PLATELET VOLUME 10.2 fL (7.1-12.4); MONOCYTES ABSOLUTE AUTO 0.7 x10-3/uL (0.3-1.0); MONOCYTES PERCENT AUTO 7.2 % (4.4-15.7); NEUTROPHILS ABSOLUTE AUTO 7.2 x10-3/uL (1.5-6.3); NEUTROPHILS PERCENT AUTO 68.9 % (30.8-76.2); PLATELET COUNT,PLT 237 x10(3)uL (151-488); RED BLOOD CELL COUNT 4.38 x10(6)uL (3.60-5.20); RED CELL DISTRIBUTION WIDTH 13.2 % (12.3-16.5); WHITE BLOOD CELL COUNT,WBC 10.4 x10-3/uL (3.0-10.3)
[2025-05-15 06:46] LABS: C-REACTIVE PROTEIN 0.87 mg/dL (<0.50)
[2025-05-15 06:49] LABS: BILIRUBIN,URINE NEGATIVE (NEGATIVE); GLUCOSE,URINE NORMAL (NORMAL); KETONES,URINE NEGATIVE (NEGATIVE); LEUKOCYTE ESTERASE,URINE NEGATIVE (NEGATIVE); NITRITE,URINE NEGATIVE (NEGATIVE); OCCULT BLOOD,URINE NEGATIVE (NEGATIVE); PROTEIN,URINE NEGATIVE (NEGATIVE); UROBILINOGEN,URINE NORMAL (NEGATIVE)
[2025-05-15 06:49] LABS: A/G RATIO 1.1; ALANINE AMINOTRANSFERASE,ALT 40 U/L (12-36); ALKALINE PHOSPHATASE 102 IU/L (56-112); ASPARTATE AMNIOTRANSFERASE,AST 21 IU/L (5-25); BILIRUBIN TOTAL 0.8 mg/dL (0.1-1.3); BLOOD UREA NITROGEN,BUN 15 mg/dL (7-18); CALCIUM 9.2 mg/dL (8.6-10.2); CARBON DIOXIDE,CO2 28 mmol/L (21-32); EST CRCL DRUG DOSING (CG) 81.21 mL/min; ESTIMATED GFR 81 mL/min (>60); GLUCOSE RANDOM 108 mg/dL (80-116); MAGNESIUM 1.7 mg/dL (1.8-2.5); PROTEIN TOTAL,TP 7.6 g/dL (6.0-8.0)
[2025-05-15 06:52] LABS: APPEARANCE,URINE CLEAR (CLEAR); COLOR,URINE YELLOW (YELLOW)
[2025-05-15 06:58] LABS: CHLORIDE,CL 102 mmol/L (100-110); POTASSIUM,K 3.8 mmol/L (3.5-5.3); SODIUM,NA 138 mmol/L (135-145)
[2025-05-15] MEDS ORDERED: Naloxone 0.4 MG/ML SDV IVPUSH PRN (07:15)
[2025-05-15] MEDS: Ketorolac 30 MG/ML SDV IVPUSH ONE (07:33)
[2025-05-15] MEDS: Morphine 4 MG/ML VIAL IVPUSH ONE (07:34)
[2025-05-15] MEDS: Iopamidol 755 Mg/ML 100 ML Bottle IV SCH (08:09)
[2025-05-15] MEDS: Piperacillin/Tazobactam 3.375 GM in Sodium Chloride 0.9% 50 ML IV ONE (09:12)
== END 2025-05-15 09:50 ==
LOC: FB.ED 05:46
DX: K35.30 Acute appendicitis with localized peritonitis, without perforation or gangrene (principal)
CPT/HCPCS: 36415; 74177; 80053; 81003; 81025; 83690; 83735; 85025; 86140; 96361; 96365; 96367; 96375; 99285; J1885; J2270; J2543; J2550; J7030; Q9967

== ENCOUNTER 2025-05-20 14:49 | Emergency (ER) | payer BC, MEDICAID | END 2025-05-20 15:23 | disposition home or self-care (01) | LOC: FB.ED 14:49 | DX: K91.870 Postprocedural hematoma of a digestive system organ or structure following a digestive system procedure (principal); Z90.49 Acquired absence of other specified parts of digestive tract | CPT/HCPCS: 99282 ==